=== PATIENT | female | born 1995 | race Caucasian/White ===

== ENCOUNTER 2024-01-23 05:36 | Inpatient (IN) | payer MEDICAID ==
[2024-01-23] MEDS ORDERED: Ondansetron PF 4 MG/2 ML Vial IVP PRN (06:14)
[2024-01-23] MEDS ORDERED: Promethazine HCl 25 MG/ML VIAL IM PRN (06:14)
[2024-01-23] MEDS ORDERED: hydrALAZINE 20 MG/ML VIAL SLOW IVP PRN ×3 (06:14→13:02)
[2024-01-23] MEDS ORDERED: Lidocaine 1% (PF) 30 ML VIAL SC PRN (06:14)
[2024-01-23] MEDS ORDERED: Oxytocin 30 units/NS 500 ML 500 ML IV SCH ×3 (06:15→07:45)
[2024-01-23 06:34] VITALS: BMI 25.2
[2024-01-23 07:01] LABS: Hematocrit 33.9 % (34.9-44.5); Hemoglobin 11.1 g/dL (12.0-15.5); Mean Corpuscular HGB CONC 32.7 g/dL (32.0-36.0); Mean Corpuscular Hemoglobin 26.4 pg (27.0-33.0); Mean Corpuscular Volume 80.7 fl (81.6-98.3); Mean Platelet Volume 12.5 fl (7.4-10.4); Platelet Count 203 10x3/uL (150-450); RBC Distribution Width 16.1 % (11.5-14.5); White Blood Cell (WBC) Count 11.3 10x3/uL (3.5-10.5)
[2024-01-23] MEDS ORDERED: Tranexamic Acid 1,000 MG/10 ML VIAL IVP PRN (07:44)
[2024-01-23] MEDS ORDERED: Ibuprofen 800 MG TAB PO PRN (07:44)
[2024-01-23] MEDS ORDERED: Butorphanol Tartrate 1 MG/ML VIAL SLOW IVP PRN (07:44)
[2024-01-23] MEDS ORDERED: Diphenoxylate HCl/Atropine Tablet PO PRN (07:44)
[2024-01-23] MEDS ORDERED: Methylergonovine 0.2 MG/ML VIAL IM PRN (07:44)
[2024-01-23] MEDS ORDERED: Carboprost 250 MCG/ML AMP IM PRN (07:44)
[2024-01-23] MEDS ORDERED: fentaNYL 50 mcg/mL 1 mL Vial SLOW IVP PRN (07:44)
[2024-01-23] MEDS ORDERED: Docusate 100 MG CAP PO PRN (07:44)
[2024-01-23] MEDS ORDERED: Misoprostol 200 MCG TAB PR PRN (07:44)
[2024-01-23] MEDS ORDERED: Acetaminophen 500 MG TAB PO PRN (07:44)
[2024-01-23] MEDS ORDERED: Lactated Ringer's 1,000 ML IV SCH (07:45)
[2024-01-23 07:47] LABS: Syphilis Antibody Nonreactive (Nonreactive); Syphilis Antibody Index 0.04 S/CO (<1.00 Non-Reactive)
[2024-01-23 07:49] LABS: HBSAg Index 0.18 S/CO (0-0.99); Hep B Surf Ag - L&D Non-Reactive S/CO (NonReactive)
[2024-01-23] MEDS ORDERED: Zolpidem Tartrate 5 MG TAB PO PRN (13:02)
[2024-01-23] MEDS ORDERED: Milk Of Magnesia 30 ML UDCUP PO PRN (13:02)
[2024-01-23] MEDS ORDERED: Bisacodyl 10 MG SUPP PR PRN (13:02)
[2024-01-23] MEDS: Ibuprofen 800 MG TAB PO SCH (16:17)
[2024-01-23] MEDS: Ferrous Sulfate 325 MG TAB PO SCH (18:47)
[2024-01-23] MEDS: Docusate 100 MG CAP PO SCH (21:37)
[2024-01-24 03:38] LABS: #Monocytes 0.8 10x3/uL (0.0-1.1); #Neutrophils 10.2 10x3/uL (1.5-8.4); %Basophils 0.1 % (0.0-2.0); %Eosinophils 0.3 % (0.0-6.0); %Lymphocytes 14.9 % (18.0-47.0); %Neutrophils 78.2 % (40.0-75.0); Hematocrit 28.6 % (34.9-44.5); Hemoglobin 9.2 g/dL (12.0-15.5); Mean Corpuscular HGB CONC 32.2 g/dL (32.0-36.0); Mean Corpuscular Hemoglobin 25.7 pg (27.0-33.0); Mean Corpuscular Volume 79.9 fl (81.6-98.3); Mean Platelet Volume 12.1 fl (7.4-10.4); Platelet Count 190 10x3/uL (150-450); RBC Distribution Width 16.3 % (11.5-14.5); Red Blood Cell (RBC) Count 3.58 10x6/uL (3.90-5.03); White Blood Cell (WBC) Count 13.1 10x3/uL (3.5-10.5)
[2024-01-24] MEDS: Lidocaine 1% (PF) 30 ML VIAL ONE (07:22)
[2024-01-24] MEDS: Naloxone HCl 0.4 mg/ml Vial ONE (07:22)
[2024-01-24] MEDS: Boostrix 0.5 ML (Tdap) VIAL (>/=7 yrs of age) IM ONE (07:23)
[2024-01-24 11:50] VITALS: BP 112/61; TEMP 97.8
== END 2024-01-24 17:10 | disposition home or self-care (01) | DRG 807 ==
LOC: CSHLD/OP 05:36 → CSHLD 06:38 → CSHPP 15:45
PROVIDERS: ADMIT Obstetrics & Gynecology; ATTEND Obstetrics & Gynecology
PROC: 10E0XZZ Delivery of Products of Conception, External Approach (ICD-10-PCS; principal; 2024-01-23)
PROC: 10907ZC Drainage of Amniotic Fluid, Therapeutic from Products of Conception, Via Natural or Artificial Opening (ICD-10-PCS; 2024-01-23)
DX: O67.9 Intrapartum hemorrhage, unspecified (principal); Z37.0 Single live birth; Z3A.38 38 weeks gestation of pregnancy
CPT/HCPCS: 85025; 85027; 86780; 86850; 86900; 86901; 87340; 99285